=== PATIENT | female | born 1990 | race Caucasian/White ===

== ENCOUNTER 2016-09-11 23:53 | Emergency (ER) | payer OTHER ==
[~2016-09-11] VITALS: Ht 165.1 cm; Wt 92.1 kg
[~2016-09-11 23:53] MED LIST: ATIVAN0.5 M1 PO; BUSPIRONE HCL10 M1 PO; CIPRO 250MG250 MG PO; CIPRO 500MG (E500 MG PO; FLUOXETINE HCL60 MG PO; FLUOXETINE HYDR40 MG PO; IBUPROFEN800 M1 PO; JUNEL FE 1/20 21 TAB PO; MOTRIN800 MG PO; NICOTINE PATCH1 EAC2 TOP; PERCOCET 325 MG1 TA2 PO; PERCOCET 5-3251 EACH PO; PHENAZOPYRIDIN200 MG PO; PROZAC40 MG PO; TORADOL10 MG PO; VICODIN5-300 PO; ZOFRAN 8MG8 MG PO
--- NOTE | 2016-09-12 00:08 | ED GENERAL ADULT ---
History of Present Illness General Chief Complaint: Dizziness Stated Complaint: BIBA PT C/O DIZZINESS Source: patient, old records, EMS Exam Limitations: no limitations Vital Signs & Intake/Output Vital Signs & Intake/Output Vital Signs Date Time Temp Pulse Resp B/P Pulse O2 O2 Flow FiO2 Ox Delivery Rate 09/12 0308 100 Room Air 09/12 0306 97.1 70 18 127/68 100 Room Air 09/12 0109 64 112/56 09/11 2356 97.5 69 18 131/69 100 Room Air ED Intake and Output 09/12 0000 09/11 1200 Intake Total Output Total Balance Patient 203 lb Weight Allergies Coded Allergies: Sulfa (Sulfonamide Antibiotics) (Severe, THROAT CLOSURE 09/12/16) latex (Mild, HEADACHE, UTI 09/12/16) Reconcile Medications Benztropine Mesylate 0.5 MG TABLET 1 TAB PO BID (Reported) Pnv#26/Iron Poly/FA/Dha (Vitafol-One Capsule) 29 MG IRON-1 MG-200 MG CAPSULE 1 CAP PO DAILY (Reported) Triage Note: TRIAGE: BIBA TO ER FROM HOME 11 WEEKS POST PARDUM REPORTING ENAR-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 PATIENT REPORTS "WAS STANDIG AT SINK AND SUDDENLY FELT LIKE GOING TO PASS OUT." REPORTS RECENTLY ON HOLTER MONITOR, "BUT HAD TO BE TAKEN OFF IT D/T ALLERGIC TO LEADS." PATIENT DENEIS ANY CP, "FEELS LIKE PALPITATIONS." REPORTS +SOB, NO ACUTE DISTRESS, LUNGS CTA. ALSO REPORTING BURNING W/ URINATION, "DON'T KNOW IF UTI OR BEGINNING OF KIDNEY STONE (HX STONES)." Triage Nurses Notes Reviewed? yes : No Patient currently breastfeeds: Yes HPI: Patient states that she called 911 because she felt lightheaded and almost to the point that she was given a pass out. The symptoms worsen whenever she got up from a sitting position. Patient denies any chest pain or palpitations. Patient states that she was recently started on a new psychiatric medication that was making her feel very anxious so yesterday she started Cogentin to help with the side effects of that medication. Patient is unsure if the symptoms are a side effect to the Cogentin. Patient denies any nausea or vomiting. Patient denies any dysuria. Patient denies any room spinning dizziness. Past History Travel History Traveled to [place] past 21 day No Medical History Any Pertinent Medical History? 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 No Review of Systems Review of Systems Constitutional: Reports: no symptoms. EENTM: Reports: no symptoms. Respiratory: Reports: no symptoms. Cardiovascular: Reports: no symptoms. GI: Reports: no symptoms. Genitourinary: Reports: no symptoms. Musculoskeletal: Reports: no symptoms. Skin: Reports: no symptoms. Neurological/Psychological: Reports: see HPI. Hematologic/Endocrine: Reports: no symptoms. Immunologic/Allergic: Reports: no symptoms. All Other Systems: Reviewed and Negative Physical Exam Physical Exam General Appearance: well developed/nourished, alert, awake, anxious, mild distress Head: atraumatic Eyes: Bilateral: PERRL, EOMI. Ears, Nose, Throat: normal pharynx, normal ENT inspection, hearing grossly normal Neck: normal inspection, supple, full range of motion Respiratory: normal breath sounds, chest non-tender, no respiratory distress, lungs clear Cardiovascular: regular rate/rhythm, normal peripheral pulses Gastrointestinal: normal bowel sounds, soft, non-tender, no organomegaly Extremities: normal inspection, normal capillary refill, normal range of motion, no edema Neurologic/Psych: no motor/sensory deficits, awake, alert, oriented x 3, normal mood/affect Skin: intact, normal color, warm/dry Lymphatic: no anterior cervical matthew Core Measures ACS in differential dx? No CVA/TIA Diagnosis: No Severe Sepsis Present: No Septic Shock Present: No Progress Differential Diagnoses I considered the following diagnoses in my evaluation of the patient: [ Electrolyte abnormality, near syncope, orthostatic hypotension, medication reaction] Plan of Care: Orders Procedure Date/time Status Regular Diet 09/12 B Active Discharge Patient 09/[address] in observation 09/12 203 Active Patient Data 09/12 203 Active Code Status 09/12 020 Active Add-on Test (ER Only) 09/12 0150 Active CULTURE,URINE 09/12 121 Active MISTAKE 09/12 000 Active URINALYSIS 09/12 5 Complete COMPREHENSIVE METABOLIC PANEL 09/12 5 Complete CBC WITHOUT DIFFERENTIAL 09/12 5 Complete EKG 09/12 0005 Active Laboratory Tests 09/12/16 012: Urine Color YEL, Urine Clarity CLDY H, Urine pH 6.5, Ur Specific Walton 1.020, Urine Protein TRACE H, Urine Ketones NEG, Urine Nitrite POS H, Urine Bilirubin NEG, Urine Urobilinogen 0.2, Ur Leukocyte Esterase SMALL H, Ur Microscopic SEDIMENT EXAMINED, Urine RBC 5-10 H, Urine WBC 15-25 H, Ur Epithelial Cells FEW, Urine Mucus FEW, Urine Hemoglobin MOD H, Urine Glucose NEG 09/12/16 0033: Anion Gap 11, Estimated GFR > 60, BUN/Creatinine Ratio 25.7 H, Glucose 111 H, Calcium 9.3, Total Bilirubin 1.3, AST 51 H, ALT 102 H, Alkaline Phosphatase 72 , Total Protein 6.9, Albumin 4.2, Globulin 2.7, Albumin/Globulin Ratio 1.6, CBC w Diff NO MAN DIFF REQ, RBC 4.59, MCV 82.6, MCH 27.4, RDW 14.4, MPV 11.0 H, Gran % 56.6, Lymphocytes % 33.3, Monocytes % 7.0, Eosinophils % 2.1, Basophils % 1.0, Absolute Granulocytes 4.5, Absolute Lymphocytes 2.6, Absolute Monocytes 0.6 , Absolute Eosinophils 0.2, Absolute Basophils 0.1, PUBS MCHC 33.2 Microbiology 09/12 121 URINE ROUT: Urine Culture - RECD Initial ED EKG: NSR, no ST T wave changes Prior EKG: unchanged Comments: There are no orthostatic changes. Patient was able to get up to go to the bathroom however she still felt lightheaded when she was up and walking. Patient states that she is feeling better after some IV fluids however she still feels uncomfortable going home. Departure Departure Disposition: HOME OR SELF CARE Condition: Stable Clinical Impression Primary Impression: Lightheadedness Referrals: HUGH MCDERMOTT MD (PCP/Family) Additional Instructions: Follow-up with your primary care physician. Return if symptoms worsen or for any concerns. Departure Forms: Customer Survey General Discharge Information Critical Care Note Critical Care Note Critical Care Time: non-applicable ED Attending Observation Initial Observation Note: I have seen and personally examined MEI FARRAR on 09/12/16 at 0202. I agree with the current emergency department documentation. The disposition (admission or discharge) is uncertain at this time, she needs a period of observation for the following reason(s): [At this point patient will be placed in ED observation for gentle hydration overnight and continued observation for this near syncopal feelings. If her symptoms resolve the patient will be stable for discharge however if her symptoms worsen she may require admission.] The ED Nurse caring for this patient has been personally informed as to what the patient is being observed for. Observation Re-Evaluation: I have reevaluated MEI FARRAR on 09/12/16 at 0242. The physical findings that support the continued need to observe this patient include [after more hydration patient now feels better and she denies any current lightheadedness. Patient now wants to go home. Patient will contact her primary care physician in the morning.]. Observation Discharge: I have reevaluated MEI FARRAR on 09/12/16 at 0243. The patient is: (): Stable for discharge (): To be admitted to Nursing Floor (): To be placed in Observation on Nursing Floor (): For transfer to other facility The patient was being observed for As a result of that observation, I have determined .
[2016-09-12 00:43] LABS: ABSOLUTE BASOPHIL COUNT 0.1 /CUMM (0.0-0.2); ABSOLUTE EOSINOPHIL COUNT 0.2 /CUMM (0.0-0.7); ABSOLUTE GRANULOCYTE CT 4.5 /CUMM (1.4-6.5); ABSOLUTE LYMPH COUNT 2.6 /CUMM (1.2-3.4); ABSOLUTE MONOCYTE COUNT 0.6 /CUMM (0.10-0.60); EOSINOPHIL % 2.1 % (0-5); GRANULOCYTE % 56.6 % (42.2-75.2); HEMATOCRIT 37.9 % (37-47); MEAN CORPUSCULAR HGB 27.4 PG (27.0-31.0); MEAN CORPUSCULAR HGB CONC 33.2 G/DL (33.0-37.0); MEAN CORPUSCULAR VOLUME 82.6 FL (81.0-99.0); RBC DISTRIBUTION WIDTH 14.4 % (11.5-14.5); RED BLOOD CELL CT 4.59 /CUMM (4.20-5.40); WHITE BLOOD CELL COUNT 7.9 /CUMM (4.8-10.8)
[2016-09-12 00:54] LABS: PLATELET COUNT 207 /CUMM (130-400)
[2016-09-12 03:06] VITALS: BP 127/68
[2016-09-12] MEDS ORDERED: VITAFOL-ONE CA1 EACH PO (03:08)
[2016-09-12] MEDS ORDERED: BENZTROPINE ME0.5 M1 PO (03:08)
== END 2016-09-12 03:09 ==
LOC: ERH 23:53
PROVIDERS: Emergency Medicine
DX: R42 Dizziness and giddiness (principal)
CPT/HCPCS: 81001; 87086; 93005; 93010

== ENCOUNTER 2016-10-02 08:14 | Emergency (ER) | payer OTHER ==
[~2016-10-02] VITALS: Ht 165.1 cm; Wt 90.3 kg
[~2016-10-02 08:14] MED LIST changes: +BENZTROPINE ME0.5 M1 PO; +VITAFOL-ONE CA1 EACH PO
[2016-10-02 08:18] VITALS: BP 117/79
[2016-10-02] MEDS ORDERED: PREDNISONE20 M1 PO (08:58)
--- NOTE | 2016-10-02 09:01 | ED GENERAL ADULT ---
History of Present Illness General Chief Complaint: Sore Throat, Dental Pain Stated Complaint: SORE THROAT Source: patient Exam Limitations: no limitations Vital Signs & Intake/Output Vital Signs & Intake/Output Vital Signs Date Time Temp Pulse Resp B/P Pulse O2 O2 Flow FiO2 Ox Delivery Rate 10/02 0818 97.4 109 16 117/79 99 Room Air Allergies Coded Allergies: Sulfa (Sulfonamide Antibiotics) (Severe, THROAT CLOSURE 09/12/16) latex (Mild, HEADACHE, UTI 09/12/16) Reconcile Medications Amoxicillin 500 MG TABLET 1 TAB PO BID STREP THROAT Benztropine Mesylate 0.5 MG TABLET 1 TAB PO BID (Reported) Pnv#26/Iron Poly/FA/Dha (Vitafol-One Capsule) 29 MG IRON-1 MG-200 MG CAPSULE 1 CAP PO DAILY (Reported) Prednisone 20 MG TABLET 1 TAB PO BID SORE THROAT DISCONTINUE WHEN ASYMPTOMATIC Triage Note: PT STATES SHE THINKS SHE HAS STEP AND SHE DOESN'T HAVE INSURANCE SO SHE HAS NO PCP AND SHE CAME HERE. Triage Nurses Notes Reviewed? yes : No Patient currently breastfeeds: No HPI: 25-year-old woman multiple medical problems seen for evaluation of throat pain. She reports a mild sore throat for the past 2 days with subjective fever and associated chills last evening. She also comments on frequent loose stools over the past 4 days. She is concerned that she might have "strep throat" and is requesting antibiotics. She denies any cough or sick contacts. Additionally she denies any headache, chest pain, palpitations, shortness of breath, nausea, vomiting. (LAUREN BELLO,CARLOS EDUARDO) Past History Travel History Traveled to [place] past 21 day No Medical History Any Pertinent Medical History? 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 No (CARLOS EDUARDO AGUILAR MD) Review of Systems Review of Systems Constitutional: Reports: see HPI. (CARLOS EDUARDO AGUILAR MD) Physical Exam Physical Exam General Appearance: well developed/nourished, no apparent distress, alert, awake Comments: General -well-developed, well-nourished obese woman in no acute distress HEENT - NCAT, PERRL, EOMI, anicteric sclera, EAC clear bilaterally, pharyngeal exudates without erythema or peritonsillar abscess, no cervical lymphadenopathy Cardio - S1, S2 w/o murmurs/gallops/rubs Resp - CTA bilaterally w/o wheezing/rhochi/crackles Neuro - Awake and alert, CN II - XII grossly intact Core Measures ACS in differential dx? No CVA/TIA Diagnosis: No Severe Sepsis Present: No Septic Shock Present: No (CARLOS EDUARDO AGUILAR MD) Progress Differential Diagnoses I considered the following diagnoses in my evaluation of the patient: Viral pharyngitis, strep pharyngitis Plan of Care: Orders Procedure Date/time Status THROAT CULTURE W/QUICK STREP 10/02 820 Complete Initial ED EKG: none Comments: Rapid strep testing returned positive. Given patient's physical examination demonstrating a pharyngeal exudate and her positive rapid strep test result it is likely patient is suffering from a bacterial pharyngitis. She was given a dose of steroids to help with her complaints of throat pain and a steroid taper to be discontinued when she is asymptomatic. She was given a 10 day total course of amoxicillin with instruction to follow-up with her PCP Dr. Mcdermott of [facility] after discharge. (CARLOS EDUARDO AGUILAR MD) Departure Departure Disposition: HOME OR SELF CARE Condition: Stable Clinical Impression Primary Impression: Strep pharyngitis Referrals: HUGH MCDERMOTT MD (PCP/Family) Additional Instructions: Take prednisone as directed. Follow up with Dr. Mcdermott of [facility] to establish care after discharge. Departure Forms: Customer Survey General Discharge Information Prescriptions: Current Visit Scripts Prednisone 1 TAB PO BID #10 TAB DISCONTINUE WHEN ASYMPTOMATIC Amoxicillin 1 TAB PO BID #20 TAB (CARLOS EDUARDO AGUILAR MD) Resident Co-Sign Statement Statement: ED Attending supervision documentation- x I saw and evaluated the patient. I have also reviewed all the pertinent lab results and diagnostic results. I agree with the findings and the plan of care as documented in the Resident's documentation. [] I have reviewed the ED Record and agree with the Resident's documentation. [] Additions or exceptions (if any) to the Resident's note and plan are summarized below: [] (SHERRELL BELLO,THEODORA) Critical Care Note Critical Care Note Critical Care Time: non-applicable (LAUREN BELLO,CARLOS EDUARDO)
[2016-10-02] MEDS ORDERED: AMOXICILLIN500 M3 PO (09:04)
--- NOTE | 2016-10-04 12:35 | OP PSYCH INTRA-AGENCY ASSESS ---
Psych Intra-Agency Transfer Date of Group or Service 10/04/16 Time of Group or Service: 1124 Part 1 Transferring Program: IOP Accepting Program: OPS Presenting Problem: Patient is a 25 year old single female, mother of 2, lives with her boyfriend (father of children) in apartment in [place] and recently gave to girl on 06/29/2016 via . She reports having "severe OCD and anxiety." She is being referred after successful completion of the intensive outpatient program. After the of her daughter she self admitted herself to the hospital for suidicial and homicidal thoughts - thoughts she may accidentally hurt her daughter and thoughts life would be better if she was not here. Overall, patient stated she is doing better at this time, but described her current mood as depressed. Rated her current depression and current anxiety both a 8/10, with 10 being the worst. Reports getting 5/6 hours of sleep each night and not taking naps during the day. For pleasurable activities patient reports she enjoys watching [employer], washing dishes, and feeding her daughter. Denies feeling isolated or socially withdrawn at this time. Denies SI/HI at this time. PAtient reports working part-time, less than 20 hours a week at [email or web address] on the weekends. States she is getting along with others in her life at this time. Reported her greatest stressor is her mother and the most effective coping skill she has found is to ignore her mother. Preferred Learning Style i.e. visual, auditory, experiential, etc: auditory Orientation Person, Place, Situation Affect WNL Speech WNL Neuro-vegetative Appetite Increased, Concentration Poor, Loss of Interest, Sexual Interest Decreased Thought Process WNL Thought Content WNL Memory WNL Insight Fair Judgment WNL Appearance Dress/Hygiene: Casually dressed, appears stated age, well-groomed Risk Assessment RISK ASSESSMENT Suicidal Ideation/Attempts (past or current): Past: SI thoughts on two occassions, once after the of her son and the other after the of her daughter. No plan/intent. Thoughts that it would be better if she was not here. Current: Denies Family History: Denies Homicidal Ideation/Attempts (past or current): Past: Afraid of wanting to harm daughter Current: Denies Protective factors for SI/HI: 'God knows the truth and what her heart really wants." Seeking help. Degree of Intent None Risk Factors High Anxiety/Distress, SA/MH Hospitalization(s) Lethality Rating 1 (mild) Medication Review Allergies Coded Allergies: Sulfa (Sulfonamide Antibiotics) (Severe, THROAT CLOSURE 09/12/16) latex (Mild, HEADACHE, UTI 09/12/16) Medication Details MEDICATIONS PSYCHIATRIC MEDICATIONS olanzapine 7.5mg at bedtime cogentin 0.5mg "if needed" 2x/day for restlessness (do not take with ativan) ativan 0.5mg "if needed" 1x daily for anxiety attack Part 2 Assessed Needs and Initial Treatment Plan/Goals: Patient will benefit from continued treatment in [facility]. She will attend medication management with Yang Reyes APRN monthly/as needed. Declined group or individual therapy at this time. Patient's goal is to maintain stable mood and good functioning while learning healthier ways to cope with stressors. See treatment plan for measurable goals and objectives. Further Evaluations Recommended: X None Indicated Neurological Vocational Psychiatric X Medical (H&P) Nutritional Psychological Educational SA Assessment Other * To be completed by Admitting MD or Assigned INTERNET SALES MANAGER Only PRE-CERTIFICATION FOR ADMISSION- [facility] Care Provider: Name of Reviewer/Senior Military Analyst: Contact Telephone #: # Inpatient days approved: Authorization #: Date of Next Review: DSM5/PS Stressors/Medical Prob Diagnosis' (DSM 5, Stressors, Medical): F33.1 Major Depressive Disorder, recurrent, moderate F42 OCD, stressors: , relationship discord, Medical: Bradycardia,Polycystic Ovarian Syndrome Comments: WHODAS:29 PCL-C: 64
== END 2016-10-02 09:12 ==
LOC: ERH 08:14
DX: J02.0 Streptococcal pharyngitis (principal); Z72.0 Tobacco use

== ENCOUNTER 2017-02-05 18:45 | Emergency (ER) | payer OTHER ==
[~2017-02-05] VITALS: Ht 165.1 cm; Wt 96.2 kg
[~2017-02-05 18:45] MED LIST changes: +AMOXICILLIN500 M3 PO; +PREDNISONE20 M1 PO
[2017-02-05] MEDS ORDERED: ARIPIPRAZOLE5 M1 PO (20:51)
[2017-02-05] MEDS ORDERED: QUETIAPINE FUM100 M1 PO (20:51)
[2017-02-05] MEDS ORDERED: FLUOXETINE HCL20 M2 PO (20:51)
[2017-02-05] MEDS ORDERED: BENZTROPINE MESY1 M1 PO (20:52)
[2017-02-05] MEDS ORDERED: BENZTROPINE ME0.5 M1 PO (20:52)
[2017-02-05 21:14] LABS: ABSOLUTE BASOPHIL COUNT 0 /CUMM (0.0-0.2); ABSOLUTE EOSINOPHIL COUNT 0.2 /CUMM (0.0-0.7); ABSOLUTE GRANULOCYTE CT 4.7 /CUMM (1.4-6.5); ABSOLUTE LYMPH COUNT 2.3 /CUMM (1.2-3.4); ABSOLUTE MONOCYTE COUNT 0.5 /CUMM (0.10-0.60); BASOPHIL % 0.6 % (0.0-2.0); EOSINOPHIL % 2.5 % (0-5); HEMATOCRIT 38.5 % (37-47); MEAN CORPUSCULAR HGB 26.9 PG (27.0-31.0); MEAN CORPUSCULAR HGB CONC 32.5 G/DL (33.0-37.0); MEAN CORPUSCULAR VOLUME 82.9 FL (81.0-99.0); MEAN PLATELET VOLUME 10.7 FL (7.4-10.4); PLATELET COUNT 213 /CUMM (130-400); RBC DISTRIBUTION WIDTH 13.9 % (11.5-14.5); RED BLOOD CELL CT 4.65 /CUMM (4.20-5.40); WHITE BLOOD CELL COUNT 7.8 /CUMM (4.8-10.8)
--- NOTE | 2017-02-05 21:45 | ED CARDIAC/CP/PALPITATIONS ---
History of Present Illness General Chief Complaint: Chest Pain Stated Complaint: CHEST PAIN, PALPITATIONS Source: patient Exam Limitations: no limitations Vital Signs & Intake/Output Vital Signs & Intake/Output Vital Signs Date Time Temp Pulse Resp B/P B/P Pulse O2 O2 Flow FiO2 Mean Ox Delivery Rate 02/05 2234 98.0 74 18 117/59 97 Room Air 02/057 98.0 88 18 120/77 97 Room Air Room Air 02/05 1852 98.1 76 18 126/79 98 Room Air Allergies Coded Allergies: Sulfa (Sulfonamide Antibiotics) (Severe, ANAPHYLAXIS 02/05/17) latex (Mild, HEADACHE, UTI 09/12/16) Reconcile Medications Aripiprazole 5 MG TABLET 1 TAB PO DAILY MENTAL HEALTH (Reported) Benztropine Mesylate 1 MG TABLET 1 TAB PO QAM MENTAL HEALTH (Reported) Benztropine Mesylate 0.5 MG TABLET 1 TAB PO QPM MENTAL HEALTH (Reported) Fluoxetine HCl 20 MG CAPSULE 60 MG PO DAILY MENTAL HEALTH (Reported) Quetiapine Fumarate 100 MG TABLET 1 TAB PO QPM MENTAL HEALTH (Reported) Triage Note: 26 YO FEMALE TO ER C/O CHEST PAIN AND SHORTNESS OF BREATH SINCE YESTERDAY. STATES SHE FEELS LIKE SHE IS UNABLE TO TAKE A BREATH. EKG IN PROGRESS. ADAN BAH PAIN, NVD Triage Nurses Notes Reviewed? yes Onset: Gradual Duration: week(s):, intermittent Timing: recent history : No Patient currently breastfeeds: No HPI: 26-year-old female comes into emergency room for further evaluation of intermittent chest pain dizziness and shortness of breath has been going on for last couple months. Symptoms began after she was started on psychiatric medications . Patient reports that she had gone psychosis. Patient was started on SEROQUEL. Symptoms are intermittent. It comes and goes. Denies any vomiting diaphoresis. Nothing seems to make the symptoms better or worse. Denies any other past medical history. Past History Travel History Traveled to [place] past 21 day No Medical History Any Pertinent Medical History? 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 No Review of Systems Review of Systems Constitutional: Reports: no symptoms. EENTM: Reports: no symptoms. Respiratory: Reports: see HPI. Cardiovascular: Reports: see HPI. GI: Reports: no symptoms. Genitourinary: Reports: no symptoms. Musculoskeletal: Reports: no symptoms. Skin: Reports: no symptoms. Neurological/Psychological: Reports: no symptoms. Hematologic/Endocrine: Reports: no symptoms. Immunologic/Allergic: Reports: no symptoms. All Other Systems: Reviewed and Negative Physical Exam Physical Exam General Appearance: well developed/nourished, no apparent distress, alert Head: atraumatic, normal appearance Eyes: Bilateral: normal appearance, EOMI. Ears, Nose, Throat: normal ENT inspection, hearing grossly normal Neck: normal inspection Respiratory: normal breath sounds, no respiratory distress Cardiovascular: regular rate/rhythm Back: normal inspection Extremities: normal range of motion, no edema Neurologic/Psych: awake, alert, oriented x 3, normal gait, normal mood/affect Skin: intact, normal color Core Measures ACS in differential dx? Yes Severe Sepsis Present: No Septic Shock Present: No Progress Differential Diagnosis: AMI, aortic dissection, cholecystitis, costochondritis, hyperkalemia, hyperthyroid, intracranial hemorrhage, musculoskeletal pain, myocarditis, pancreatitis, pericarditis, pneumonia, pneumothorax, pulmonary embolism, PUD/GERD, rib fracture, sepsis, unstable angina Plan of Care: Orders Procedure Date/time Status Add-on Test (ER Only) 02/05 2145 Active D-DIMER 02/06 2104 Complete URINE 02/06 2044 Complete TROPONIN LEVEL 02/06 2044 Complete COMPREHENSIVE METABOLIC PANEL 02/06 2044 Complete CBC WITHOUT DIFFERENTIAL 02/06 2044 Complete EKG 02/05 1847 Active Laboratory Tests 02/05/172128: Urine Test NEGATIVE 02/05/172103: Anion Gap 12, Estimated GFR > 60, BUN/Creatinine Ratio 20.0, Glucose 88, Calcium 9.5, Total Bilirubin 0.8, AST 33, ALT 69 H, Alkaline Phosphatase 73, Troponin I < 0.01, Total Protein 7.1, Albumin 4.5, Globulin 2.6, Albumin/Globulin Ratio 1.7 , D-Dimer High Sensitivty < 200, CBC w Diff NO MAN DIFF REQ, RBC 4.65, MCV 82.9, MCH 26.9 L, RDW 13.9, MPV 10.7 H, Gran % 60.0, Lymphocytes % 30.0, Monocytes % 6.9, Eosinophils % 2.5, Basophils % 0.6, Absolute Granulocytes 4.7, Absolute Lymphocytes 2.3, Absolute Monocytes 0.5, Absolute Eosinophils 0.2, Absolute Basophils 0, PUBS MCHC 32.5 L Diagnostic Imaging: Viewed by Me: Radiology Read. Discussed w/RAD: Radiology Read. Radiology Impression: SERVICE DATE: 02/05/17 EXAM TYPE: RAD - XRY-CHEST XRAY, PA AND LATERAL EXAMINATION: XR CHEST CLINICAL INFORMATION: Chest pain. COMPARISON: Chest x-ray 07/08/2016. TECHNIQUE: Three views of the chest were obtained. FINDINGS: The lungs are well-expanded and clear without focal airspace consolidation. No pleural effusions or pneumothoraces are identified. Cardiomediastinal contours are within normal limits. Soft tissues are unremarkable. No acute osseous abnormality is identified. IMPRESSION: No acute pulmonary process. Initial ED EKG: normal intervals, normal p-waves, normal sinus rhythm, rate (89) , nonspecific ST T wave chg Departure Departure Disposition: HOME OR SELF CARE Condition: Stable Clinical Impression Primary Impression: Atypical chest pain Referrals: HUGH MCDERMOTT MD (PCP/Family) Additional Instructions: Follow-up with your primary care doctor. Return if any concerns worsening symptoms. You may need further evaluation with cloth dyer. Please go over all results of today's visit with your primary care doctor. Contact your primary care doctor to let them know you were here in the emergency room. There may be nonspecific findings which may not be related to your visit today here in the emergency room but may require further evaluation and chronic monitoring by your primary care doctor. If you had a laceration today the chance of foreign body always remains. You should follow-up with your primary care doctor for recheck in 3-5 days for a wound check. If you had an x-ray done there is a chance that a fracture could have been missed on initial read and you should follow-up with your primary care doctor for repeat x-rays if symptoms persist. If your blood pressure was elevated here in the emergency room please have rechecked by her primary care doctor within the next 48 hours by your primary care doctor. If you were prescribed a narcotic here in the emergency room or any type of controlled substances you're not allowed to drive while taking this medication or operate any type of heavy machinery. Narcotics can make you feel lightheaded dizziness nausea and can cause constipation. You may need to hot die picker a stool softener. Thank you for choosing [facility] emergency room. Please return to the emergency room immediately if you have any other concerns worsening of symptoms. Departure Forms: Customer Survey General Discharge Information Comments 02/05/2017 10:48:21 PM Patient clinically looks well. Patient is in no apparent distress. Patient is nontoxic-appearing. Symptoms of a going on for months. Patient will follow up with primary care doctor. Return if any other concerns worsening symptoms. Case discussed with Dr. chapman. Critical Care Note Critical Care Note Critical Care Time: non-applicable
--- NOTE | 2017-02-05 22:27 | RADIOLOGY REPORT ---
EXAMINATION: XR CHEST CLINICAL INFORMATION: Chest pain. COMPARISON: Chest x-ray 07/08/2016. TECHNIQUE: Three views of the chest were obtained. FINDINGS: The lungs are well-expanded and clear without focal airspace consolidation. No pleural effusions or pneumothoraces are identified. Cardiomediastinal contours are within normal limits. Soft tissues are unremarkable. No acute osseous abnormality is identified. IMPRESSION: No acute pulmonary process.
[2017-02-05 22:34] VITALS: BP 117/59
== END 2017-02-05 22:45 ==
LOC: ERH 18:45
PROVIDERS: Physician Assistant Medical
DX: R07.89 Other chest pain (principal)
CPT/HCPCS: 81025; 93005; 93010

== ENCOUNTER 2017-03-09 16:28 | Emergency (ER) | payer OTHER ==
[~2017-03-09] VITALS: Ht 165.1 cm; Wt 94.8 kg
[~2017-03-09 16:28] MED LIST changes: +ARIPIPRAZOLE5 M1 PO; +BENZTROPINE MESY1 M1 PO; +FLUOXETINE HCL20 M2 PO; +QUETIAPINE FUM100 M1 PO
[2017-03-09 16:35] VITALS: BP 120/81
--- NOTE | 2017-03-09 16:53 | ED GI/GU/ABDOMINAL COMPLAINT ---
History of Present Illness General Chief Complaint: Female Urogenital Problems Stated Complaint: UTI , HX OF KIDNEY STONE Source: patient Exam Limitations: no limitations Vital Signs & Intake/Output Vital Signs & Intake/Output Vital Signs Date Time Temp Pulse Resp B/P B/P Pulse O2 O2 Flow FiO2 Mean Ox Delivery Rate 03/09 1651 Room Air 03/09 1635 97.1 76 18 120/81 100 Room Air Allergies Coded Allergies: Sulfa (Sulfonamide Antibiotics) (Severe, ANAPHYLAXIS 02/05/17) latex (Mild, HEADACHE, UTI 09/12/16) Reconcile Medications Aripiprazole 5 MG TABLET 1 TAB PO QPM MENTAL HEALTH (Reported) Benztropine Mesylate 1 MG TABLET 1 TAB PO QAM MENTAL HEALTH (Reported) Benztropine Mesylate 0.5 MG TABLET 1 TAB PO QPM MENTAL HEALTH (Reported) Ciprofloxacin HCl (Cipro) 500 MG TABLET 1 TAB PO BID uti Fluoxetine HCl 20 MG CAPSULE 60 MG PO DAILY MENTAL HEALTH (Reported) Quetiapine Fumarate 100 MG TABLET 2 TAB PO QPM MENTAL HEALTH (Reported) Triage Note: PT TO ED FOR PELVIC AND FLANK PAIN X 2 DAYS, RECENT TX FOR UTI, REPORTING SHE PASSED A KIDNEY STONE 5 DAYS AGO "AND ITS BEEN SORE SINCE" DENIES FEVER, NAUSEA, VOMITING. Triage Nurses Notes Reviewed? yes ? n Is pt currently ? No Onset: Abrupt Duration: day(s):, intermittent Timing: recent history Quality/Severity: moderate, sharpness Radiation: back Activities at Onset: none No Modifying Factors: none HPI: 26 showed female comes into emergency room for further evaluation of burning with urination lower pelvic pressure and some left flank pain. Patient was seen at urgent care center couple weeks ago and diagnosed with UTI and started on Macrobid. She was then average for Hospital last week for some chest pain and also had another urine which was told that she had a infection and was switched to Keflex. She has no complaints of chest pain today but she reports some persistent burning with urination and lower abdominal pain. Finish course of Keflex. Some associated left flank pain. She reports the other day she feels like she passed a kidney stone. She reports that her white [place] was in toilet paper . (BAILEY CHAVEZ,EVER) Past History Travel History Traveled to [place] past 21 day No Medical History Any Pertinent Medical History? 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 No (EVER GASCA) Review of Systems Review of Systems Constitutional: Reports: no symptoms. EENTM: Reports: no symptoms. Respiratory: Reports: no symptoms. Cardiovascular: Reports: no symptoms. GI: Reports: no symptoms. Genitourinary: Reports: see HPI. Musculoskeletal: Reports: no symptoms. Skin: Reports: no symptoms. Neurological/Psychological: Reports: no symptoms. Hematologic/Endocrine: Reports: no symptoms. Immunologic/Allergic: Reports: no symptoms. All Other Systems: Reviewed and Negative (EVER GASCA) Physical Exam Physical Exam General Appearance: well developed/nourished, no apparent distress, alert Head: atraumatic, normal appearance Eyes: Bilateral: normal appearance, EOMI. Ears, Nose, Throat, Mouth: hearing grossly normal, moist mucous membrane Neck: normal inspection Respiratory: normal breath sounds, no respiratory distress Cardiovascular: regular rate/rhythm Gastrointestinal: soft Back: normal inspection Extremities: normal range of motion Neurologic/Psych: awake, alert, oriented x 3, normal gait Skin: intact, normal color Core Measures ACS in differential dx? No Severe Sepsis Present: No Septic Shock Present: No (EVER GASCA) Progress Differential Diagnosis: appendicitis, biliary colic, bowel obstruction, colon cancer, cholecystitis, diverticulitis, ectopic , intrauterine , kidney stone, ovarian cyst, ovarian torsion, PID/cervicitis, UTI/pyelo Plan of Care: Orders Procedure Date/time Status Add-on Test (ER Only) 03/09 1718 Active CULTURE,URINE 03/09 1648 Active URINE 03/09 1640 Complete URINALYSIS 03/09 1636 Complete Laboratory Tests 03/09/171647: Urine Test NEGATIVE 03/09/171647: Urine Color YEL, Urine Clarity HAZY H, Urine pH 7.0, Ur Specific [place] 1.015, Urine Protein TRACE H, Urine Ketones NEG, Urine Nitrite NEG, Urine Bilirubin NEG, Urine Urobilinogen 0.2, Ur Leukocyte Esterase MOD H, Ur Microscopic SEDIMENT EXAMINED, Urine RBC 3-5, Urine WBC 25-50 H, Ur Epithelial Cells RARE, Urine Bacteria MANY H, Urine Hemoglobin MOD H, Urine Glucose NEG Microbiology 03/09 1648 URINE ROUT: Urine Culture - RECD Initial ED EKG: none Comments: 03/09/2017 5:29:26 PM Symptoms are consistent with uncomplicated UTI at this point. Patient declined any blood work or diagnostic imaging. T patient will be treated symptomatically. Follow-up with primary care. Culture sent. Return if any other concerns. (EVER GASCA) Departure Departure Disposition: HOME OR SELF CARE Condition: Stable Clinical Impression Primary Impression: UTI (urinary tract infection) Referrals: JAYME BELLO,GABRIELLA MCDERMOTT MD,HUGH (PCP/Family) Additional Instructions: Take ciprofloxacin as prescribed. Rest. Drink plenty of fluids. Follow-up with primary care doctor. Return if any concerns worsening symptoms. Departure Forms: Customer Survey General Discharge Information Prescriptions: Current Visit Scripts Ciprofloxacin HCl (Cipro) 1 TAB PO BID #14 TAB (EVER GASCA) PA/SLACK LINE YARDER Co-Sign Statement Statement: ED Attending supervision documentation- [] I saw and evaluated the patient. I have also reviewed all the pertinent lab results and diagnostic results. I agree with the findings and the plan of care as documented in the PA's/SLACK LINE YARDER's documentation. [X] I have reviewed the ED Record and agree with the PA's/SLACK LINE YARDER's documentation. [] Additions or exceptions (if any) to the PAs/SLACK LINE YARDER's note and plan are summarized below: [] (MAREN BELLO,RAMSEY)
[2017-03-09] MEDS ORDERED: CIPRO500 M1 PO (17:22)
== END 2017-03-09 17:28 ==
LOC: ERH 16:28
DX: N39.0 Urinary tract infection, site not specified (principal)
CPT/HCPCS: 81001; 81025; 87086

== ENCOUNTER 2017-03-10 09:54 | Emergency (ER) | payer OTHER ==
[~2017-03-10] VITALS: Ht 165.1 cm; Wt 94.8 kg
[~2017-03-10 09:54] MED LIST changes: +CIPRO500 M1 PO
[2017-03-10 11:25] LABS: ABSOLUTE BASOPHIL COUNT 0.1 /CUMM (0.0-0.2); ABSOLUTE EOSINOPHIL COUNT 0.1 /CUMM (0.0-0.7); ABSOLUTE GRANULOCYTE CT 2.8 /CUMM (1.4-6.5); ABSOLUTE LYMPH COUNT 1.5 /CUMM (1.2-3.4); ABSOLUTE MONOCYTE COUNT 0.4 /CUMM (0.10-0.60); BASOPHIL % 1.1 % (0.0-2.0); EOSINOPHIL % 2.6 % (0-5); GRANULOCYTE % 57.7 % (42.2-75.2); HEMATOCRIT 37.9 % (37-47); MEAN CORPUSCULAR HGB 27.2 PG (27.0-31.0); MEAN CORPUSCULAR HGB CONC 32.9 G/DL (33.0-37.0); MEAN CORPUSCULAR VOLUME 82.9 FL (81.0-99.0); MEAN PLATELET VOLUME 10.5 FL (7.4-10.4); PLATELET COUNT 204 /CUMM (130-400); RBC DISTRIBUTION WIDTH 14.2 % (11.5-14.5); RED BLOOD CELL CT 4.58 /CUMM (4.20-5.40); WHITE BLOOD CELL COUNT 4.9 /CUMM (4.8-10.8)
--- NOTE | 2017-03-10 11:28 | ED GI/GU/ABDOMINAL COMPLAINT ---
History of Present Illness General Chief Complaint: Abdominal Pain/Flank Pain Stated Complaint: SEEN HERE LAST NIGHT KIDNEY STONES Source: patient, old records Exam Limitations: no limitations Vital Signs & Intake/Output Vital Signs & Intake/Output Vital Signs Date Time Temp Pulse Resp B/P B/P Pulse O2 O2 Flow FiO2 Mean Ox Delivery Rate 03/10 1223 97.0 92 18 127/75 98 Room Air 03/10 1001 98.4 94 18 123/85 98 Room Air Allergies Coded Allergies: Sulfa (Sulfonamide Antibiotics) (Severe, ANAPHYLAXIS 02/05/17) latex (Mild, HEADACHE, UTI 09/12/16) Reconcile Medications Aripiprazole 5 MG TABLET 1 TAB PO QPM MENTAL HEALTH (Reported) Benztropine Mesylate 1 MG TABLET 1 TAB PO QAM MENTAL HEALTH (Reported) Benztropine Mesylate 0.5 MG TABLET 1 TAB PO QPM MENTAL HEALTH (Reported) Ciprofloxacin HCl (Cipro) 500 MG TABLET 1 TAB PO BID uti Fluoxetine HCl 20 MG CAPSULE 60 MG PO DAILY MENTAL HEALTH (Reported) Quetiapine Fumarate 100 MG TABLET 2 TAB PO QPM MENTAL HEALTH (Reported) Triage Note: 26 YO FEMALE TO TRIAGE C/O L SIDED LOWER ABD PAIN RADIATING TO FLANK. STATES WAS SEEN LAST PM AND DX WITH A UTI, SENT HOME ON CIPRO. STATES HX OF KIDNEY STONES AND WAS TOLD IF HER PAIN GETS WORSE TO COME BACK. STATES THIS PAIN JUST STARTED THIS AM. STATES PAIN IS ON/OFF. DENIES NVD. LMP 02/28/17 Triage Nurses Notes Reviewed? yes ? N Is pt currently ? No Onset: Abrupt Duration: hour(s): Timing: recent history Location: suprapubic Radiation: flank Sexually Active: Yes Use of Protection: No HPI: 26-year-old female presents emergency department complaining of suprapubic pain radiating to bilateral flanks /back. The patient was seen and evaluated yesterday complaining of urinary tract infection symptoms, her urinalysis showed UTI, she was started on Cipro and instructed to return with any worsening symptoms or increasing pain. A urine culture was sent yesterday. The patient started to have dysuria 3 weeks ago and was treated originally with Macrobid, culture and sensitivity showed that this antibiotic was not effective and she was switched to Keflex which relieved her dysuria for about 3 days. Been experiencing UTI symptoms again prompting her to come in yesterday. The patient also has had thin yellowish vaginal discharge which is not normal for her. The patient is sexually active without use of protection, she has had 1 partner for the past 7 years, she says low suspicion for STDs. The patient's last bowel movement was today. The patient still has dysuria. The patient denies fevers, chills, nausea, vomiting, hematuria, diarrhea, constipation. (DARIAN DIEGO PA-C) Past History Travel History Traveled to [place] past 21 day No Medical History Any Pertinent Medical History? 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 No (DARIAN DIEGO PA-C) Review of Systems Review of Systems Constitutional: Reports: no symptoms. EENTM: Reports: no symptoms. Respiratory: Reports: no symptoms. Cardiovascular: Reports: no symptoms. GI: Reports: see HPI. Genitourinary: Reports: see HPI. Musculoskeletal: Reports: no symptoms. Skin: Reports: no symptoms. Neurological/Psychological: Reports: no symptoms. Hematologic/Endocrine: Reports: no symptoms. Immunologic/Allergic: Reports: no symptoms. All Other Systems: Reviewed and Negative (DARIAN DIEGO PA-C) Physical Exam Physical Exam Gastrointestinal: SEE BELOW Comments: Well-developed well-nourished person in no acute distress HEENT: HEAD is atraumatic, normocephalic Neck: Supple, normal range of motion Back: Nontender, no CVA tenderness. Full range of motion Cardiovascular: Regular rate and rhythms no murmurs rubs or gallops Respiratory: No respiratory distress. Patient speaking in full complete sentences. Breath sounds clear to auscultation bilaterally: NO W/R/R Abdomen: Soft, suprapubic tenderness, nondistended, no appreciable organomegaly. Normal bowel sounds. No rebound/guarding, No appreciable enlargement of the abdominal aorta, No ascites. 4TH GRADE TEACHER: External genetalia WNL, tenderess with speculum exam and swabing, white/ yellow thin discharge present, no cervical motion tendeness on bimanual exam, no mass felt on bimanual exam Extremity: No edema, full range of motion of extremities Neuro: Alert oriented x3, motor sensory normal, There were no obvious focal neurologic abnormalities. Skin: No appreciable rash on exposed skin, skin is warm and dry. Psych: Mood and affect is normal, memory and judgment is normal. Core Measures ACS in differential dx? No Severe Sepsis Present: No Septic Shock Present: No (JOHNATHON MARTINEZ,DARIAN CHANG) Progress Differential Diagnosis: appendicitis, biliary colic, bowel obstruction, cholecystitis, diverticulitis, ectopic , endometritis, inflamm bowel dis, intrauterine , kidney stone, ovarian cyst, ovarian torsion, PID/ cervicitis, SBO, UTI/pyelo Plan of Care: Orders Procedure Date/time Status TRICHOMONAS 03/10 1122 Complete POTASSIUM HYDROXIDE (HENRI) 03/10 1122 Complete GENITAL CULTURE 03/10 1122 Active CHLAMYDIA-GC DNA PROBE 03/10 112 Active URINE 03/10 1122 Complete URINALYSIS 03/10 1039 Complete COMPREHENSIVE METABOLIC PANEL 03/10 1039 Complete CBC WITHOUT DIFFERENTIAL 03/10 1039 Complete Laboratory Tests 03/10/17 1214: Urine Test NEGATIVE 03/10/17 1214: Urinalysis LIGHT H, Urine Color YEL, Urine Clarity HAZY H, Urine pH 7.0, Ur Specific [place] 1.020, Urine Protein NEG, Urine Ketones NEG, Urine Nitrite NEG, Urine Bilirubin NEG, Urine Urobilinogen 0.2, Ur Leukocyte Esterase TRACE H, Ur Microscopic SEDIMENT EXAMINED, Urine RBC RARE, Urine WBC 5-10 H, Ur Epithelial Cells FEW, Urine Bacteria FEW H, Urine Mucus FEW, Urine Hemoglobin NEG, Urine Glucose NEG 03/10/17 1100: Anion Gap 10, Estimated GFR > 60, BUN/Creatinine Ratio 18.6, Glucose 101 H, Calcium 9.4, Total Bilirubin 1.3, AST 45 H, ALT 82 H, Alkaline Phosphatase 88, Total Protein 6.7, Albumin 4.0, Globulin 2.7, Albumin/Globulin Ratio 1.5, CBC w Diff NO MAN DIFF REQ, RBC 4.58, MCV 82.9, MCH 27.2, RDW 14.2, MPV 10.5 H, Gran % 57.7, Lymphocytes % 30.9, Monocytes % 7.7, Eosinophils % 2.6, Basophils % 1.1, Absolute Granulocytes 2.8, Absolute Lymphocytes 1.5, Absolute Monocytes 0.4, Absolute Eosinophils 0.1, Absolute Basophils 0.1, PUBS MCHC 32.9 L Microbiology 03/10 1220 GENITAL: Trichomonas Preparation - COMP 03/10 1200 GENITAL: GC DNA Probe - RECD 03/10 1200 GENITAL: Chlamydia DNA Probe (COSMO) - RECD 03/10 1200 GENITAL: HENRI Preparation - COMP 03/10 1200 GENITAL: Genital Culture - RECD The patient was discussed with Dr. Bagley. Patient is worried about kidney stone. Patient's labs are within normal limits, we'll obtain CT scan to assess for stone. CT scan shows left kidney stone, nonobstructing, no pyelonephritis, no hydronephrosis. The patient was informed that this is not causing her abdominal /flank pain. The patient's urinalysis shows improving UTI, urine culture sensitivity is not available yet. The patient's pain may be from her cystitis. Patient was instructed to continue taking current antibiotic Cipro. The patient was instructed to increase her oral fluid intake. The patient will inform her primary care doctor that she was seen and evaluated today. The patient is in no acute distress, she is nontoxic appearing, her vital signs are stable. The patient will return with any worsening symptoms or concerns. Patient is in agreement with the plan of care. (JOHNATHON MARTINEZ,DARIAN CHANG) Diagnostic Imaging: Viewed by Me: CT Scan. Discussed w/RAD: CT Scan. Radiology Impression: PATIENT: MEI FARRAR PRESENT AGE: 26 PATIENT ACCOUNT NO: [id number] : 90 LOCATION: [facility] ORDERING PHYSICIAN: DARIAN DIEGO PA-C SERVICE DATE: 03/10/17 EXAM TYPE: CAT - CT ABD & PELVIS W/O IV CONTRAS EXAMINATION: CT ABDOMEN AND PELVIS WITHOUT CONTRAST CLINICAL INFORMATION: Recurrent UTI. Dysuria. Pelvic/flank pain. Evaluate for kidney stone or pyelonephritis. History of kidney stones with 2 stents placed in the left kidney in the past. COMPARISON: Abdominal ultrasound dated 07/09/2016. CT scan of the abdomen and pelvis dated 04/06/2015. TECHNIQUE: Multidetector volumetric imaging was performed from the superior aspect of the liver through the pubic symphysis. Sagittal and coronal reformatted images were obtained on the technologist workstation. DLP: 591.10 mGy-cm. FINDINGS: LUNG BASES: The visualized lung bases are unremarkable. LIVER, GALLBLADDER, AND BILIARY TREE: The liver is normal in size, shape, and attenuation. No focal hepatic lesion on noncontrast imaging. No biliary ductal dilatation is present. The gallbladder is unremarkable with no evidence of radiopaque gallstones, gallbladder wall thickening, or obvious pericholecystic inflammatory changes. PANCREAS, SPLEEN, ADRENAL GLANDS: Tiny accessory splenule is again seen in the splenic hilar region. Unremarkable on noncontrast imaging. KIDNEYS AND URETERS: The kidneys are normal in size, shape, and attenuation. There is a nonobstructing 0.4 x 0.3 cm calcification in the lower pole of the left kidney with attenuation values ranging up to 386 Hounsfield units, favoring a uric acid stone. This is new compared to the prior exam. No additional renal calculi seen. No hydronephrosis or hydroureter seen. No ureteral calculi. No perinephric stranding. BLADDER: Decompressed and suboptimally assessed, but grossly unremarkable. No bladder calculi. GASTROINTESTINAL TRACT: The small and large bowel are unremarkable. The appendix is unremarkable. ABDOMINAL WALL: No significant hernia is appreciated. LYMPH NODES, VASCULAR: Unremarkable. PELVIC VISCERA: Unremarkable. OSSEOUS STRUCTURES: Mild S-shaped thoracolumbar scoliosis. Otherwise unremarkable. IMPRESSION: 1. Nonobstructing 0.4 cm calcification in lower pole of left kidney, new from prior CT scan from 2014. No additional renal calculi seen. 2. No evidence of obstructive uropathy. DICTATED BY: JOEY BOX MD DATE/TIME DICTATED:03/10/171306 KINDERGARTNER: KERI DATE/TIME TRANSCRIBED:03/10/171306 CONFIDENTIAL, DO NOT COPY WITHOUT APPROPRIATE AUTHORIZATION. <Electronically signed in Other Vendor System> SIGNED BY: JOEY BOX MD 03/10/17 1327 Initial ED EKG: none (JOHNATHON MARTINEZ,DARIAN CHANG) Departure Departure Disposition: HOME OR SELF CARE Condition: Stable Clinical Impression Primary Impression: Cystitis Secondary Impressions: Kidney stone, Suprapubic abdominal pain Referrals: HUGH MCDERMOTT MD (PCP/Family) Additional Instructions: Continue to take full course of ciprofloxacin antibiotics prescribed here yesterday. Increase your fluid intake, rest. Take Tylenol or Motrin as prescribed as needed for pain. Follow up with your primary care doctor to inform them that you're seen and evaluated here today. We will call you if the results of your urine culture do not match the antibiotic that you're currently on. Return with any worsening symptoms or concerns. Please note that there might be incidental findings in your evaluation that are unrelated to the current emergency department visit. Please notify your primary care doctor about this emergency department visit in order to obtain and review all of the testing performed so that these incidental findings can be monitored as needed. If you had an x-ray performed, please understand that some fractures may not be seen on the initial set of x-rays. If your symptoms persist you might need a repeat set of x-rays to check for such a fracture. If you had a laceration evaluated, please understand that foreign bodies such as glass or wood may not be visible to the naked eye or on plain x-rays. If the wound becomes red, swollen, increasingly more painful or if there is any drainage from the wound, please have it reevaluated by a physician for the possibility of a retained foreign body. If you're unable to follow up as outlined in the discharge instructions please return to the emergency department. Thank you for choosing the [facility] Emergency Department for your care. It was a pleasure to serve you today. Departure Forms: Customer Survey General Discharge Information (JOHNATHON MARTINEZ,DARIAN CHANG) PA/SURGERY ATTENDANT Co-Sign Statement Statement: ED Attending supervision documentation- [] I saw and evaluated the patient. I have also reviewed all the pertinent lab results and diagnostic results. I agree with the findings and the plan of care as documented in the PA's/SURGERY ATTENDANT's documentation. [X] I have reviewed the ED Record and agree with the PA's/SURGERY ATTENDANT's documentation. [] Additions or exceptions (if any) to the PAs/SURGERY ATTENDANT's note and plan are summarized below: [] (MAREN BELLO,RAMSEY)
[2017-03-10 12:23] VITALS: BP 127/75
--- NOTE | 2017-03-10 13:27 | CT SCAN REPORT ---
EXAMINATION: CT ABDOMEN AND PELVIS WITHOUT CONTRAST CLINICAL INFORMATION: Recurrent UTI. Dysuria. Pelvic/flank pain. Evaluate for kidney stone or pyelonephritis. History of kidney stones with 2 stents placed in the left kidney in the past. COMPARISON: Abdominal ultrasound dated 07/09/2016. CT scan of the abdomen and pelvis dated 04/06/2015. TECHNIQUE: Multidetector volumetric imaging was performed from the superior aspect of the liver through the pubic symphysis. Sagittal and coronal reformatted images were obtained on the technologist workstation. DLP: 591.10 mGy-cm. FINDINGS: LUNG BASES: The visualized lung bases are unremarkable. LIVER, GALLBLADDER, AND BILIARY TREE: The liver is normal in size, shape, and attenuation. No focal hepatic lesion on noncontrast imaging. No biliary ductal dilatation is present. The gallbladder is unremarkable with no evidence of radiopaque gallstones, gallbladder wall thickening, or obvious pericholecystic inflammatory changes. PANCREAS, SPLEEN, ADRENAL GLANDS: Tiny accessory splenule is again seen in the splenic hilar region. Unremarkable on noncontrast imaging. KIDNEYS AND URETERS: The kidneys are normal in size, shape, and attenuation. There is a nonobstructing 0.4 x 0.3 cm calcification in the lower pole of the left kidney with attenuation values ranging up to 386 Hounsfield units, favoring a uric acid stone. This is new compared to the prior exam. No additional renal calculi seen. No hydronephrosis or hydroureter seen. No ureteral calculi. No perinephric stranding. BLADDER: Decompressed and suboptimally assessed, but grossly unremarkable. No bladder calculi. GASTROINTESTINAL TRACT: The small and large bowel are unremarkable. The appendix is unremarkable. ABDOMINAL WALL: No significant hernia is appreciated. LYMPH NODES, VASCULAR: Unremarkable. PELVIC VISCERA: Unremarkable. OSSEOUS STRUCTURES: Mild S-shaped thoracolumbar scoliosis. Otherwise unremarkable. IMPRESSION: 1. Nonobstructing 0.4 cm calcification in lower pole of left kidney, new from prior CT scan from 2014. No additional renal calculi seen. 2. No evidence of obstructive uropathy.
== END 2017-03-10 13:45 ==
LOC: ERH 09:54
PROVIDERS: Physician Assistant
DX: N30.90 Cystitis, unspecified without hematuria (principal); N20.0 Calculus of kidney
CPT/HCPCS: 87070; 74176; 81001; 81025; 87491; 87591

== ENCOUNTER 2018-01-25 09:40 | Emergency (ER) | payer OTHER ==
[~2018-01-25] VITALS: Ht 165.1 cm; Wt 96.2 kg
[~2018-01-25 09:40] MED LIST changes: +ABILIFY5 M1 PO
[2018-01-25 09:45] VITALS: BP 120/74
[2018-01-25] MEDS ORDERED: QUETIAPINE FUM100 M1 PO (09:58)
[2018-01-25] MEDS ORDERED: BENZTROPINE ME0.5 M1 PO (09:58)
[2018-01-25] MEDS ORDERED: ABILIFY5 M1 PO (09:58)
[2018-01-25] MEDS ORDERED: FLUOXETINE HCL60 MG PO (09:58)
--- NOTE | 2018-01-25 10:00 | ED GENERAL ADULT ---
History of Present Illness General Chief Complaint: General Adult Stated Complaint: PSY REFILL Source: patient Exam Limitations: no limitations Vital Signs & Intake/Output Vital Signs & Intake/Output Vital Signs Date Time Temp Pulse Resp B/P B/P Pulse O2 O2 Flow FiO2 Mean Ox Delivery Rate 01/25 0945 97.8 70 20 120/74 98 Room Air Allergies Coded Allergies: Sulfa (Sulfonamide Antibiotics) (Severe, ANAPHYLAXIS 01/25/18) latex (Mild, HEADACHE, UTI 01/25/18) Reconcile Medications Aripiprazole 5 MG TABLET 1 TAB PO QPM MENTAL HEALTH (Reported) Aripiprazole (Abilify) 5 MG TABLET 1 TAB PO QPM DEPRESSION Aripiprazole (Abilify) 5 MG TABLET 1 TAB PO DAILY DEPRESSION Benztropine Mesylate 1 MG TABLET 1 TAB PO QAM MENTAL HEALTH (Reported) Benztropine Mesylate 0.5 MG TABLET 1 TAB PO QPM MENTAL HEALTH (Reported) Benztropine Mesylate 0.5 MG TABLET 1 TAB PO AD DEPRESSION 2 TABS QAM 1 TAB QPM Benztropine Mesylate 0.5 MG TABLET 1 TAB PO AD DEPRESSION, PSYCHOSIS 2 TABS IN MORNING 1 TAB EVENING Ciprofloxacin HCl (Cipro) 500 MG TABLET 1 TAB PO BID uti Fluoxetine HCl 20 MG CAPSULE 60 MG PO DAILY MENTAL HEALTH (Reported) Fluoxetine HCl 20 MG CAPSULE 3 CAP PO QAM DEPRESSION Fluoxetine HCl 60 MG TABLET 1 TAB PO DAILY DEPRESSION Quetiapine Fumarate 100 MG TABLET 2 TAB PO QPM MENTAL HEALTH (Reported) Quetiapine Fumarate 100 MG TABLET 1 TAB PO QPM SLEEP/DEPRESSION Quetiapine Fumarate 100 MG TABLET 1 TAB PO QPM POST PSYCHOSIS Triage Note: TRIAGE: PT TO ER WITH ADIN C/C REQUESTING MEDICATION REFILL. PROZAC 60 MG DAILY ABILIFY 5 MG DAILY COGENTIN 0.5 MG 2 TAB QAM AND 1 TAB QPM SEROQUEL 100 MG QPM STATES PSYCHIATRIST SHE WAS SEEING DOES NOT ACCEPT HER INSURANCE AND OUT OF POCKET COST IS $200. STRUGGLING TO FIND NEW ONE THAT WILL TAKE HER INSURANCE. Triage Nurses Notes Reviewed? yes Onset: Abrupt Duration: constant Timing: recent history : No Patient currently breastfeeds: No HPI: 27-year-old female comes into the emergency room for a refill on her psychiatric medication. She is still trying to get in with a psychiatrist. She has a history of post depression. She denies any suicidal or homicidal patient. She reports she feels fine when she is on her medications. She is currently still trying to find a doctor. Past History Travel History Traveled to [place] past 21 day No Medical History Any Pertinent Medical History? see below for history Neurological: NONE EENT: NONE Cardiovascular: BRADYCARDIA ARRHYTHMIA Respiratory: NONE Gastrointestinal: NONE Hepatic: NONE Renal: nephrolithiasis, HYDRONEPHROSIS Musculoskeletal: NONE Psychiatric: anxiety, bipolar disease, depression, OCD POSTPARDEM DEPRESSION Endocrine: NONE Blood Disorders: NONE Cancer(s): NONE CARDIOLOGY PHYSICIAN/Reproductive: PCOS History of MRSA: No History of VRE: No History of CDIFF: No Tetanus Vaccine: 05/13/16 Surgical History Surgical History: , EYE SX- L EYE-MUSCLE lEFT RENAL STENT Psychosocial History Who do you live with Family What is your primary language Azeri Tobacco Use: Current Daily Use Daily Tobacco Use Amount/Type: => 5 Cigarettes daily ETOH Use: occasional use Illicit Drug Use: denies illicit drug use Family History Hx Contributory? No Review of Systems Review of Systems Constitutional: Reports: no symptoms. EENTM: Reports: no symptoms. Respiratory: Reports: no symptoms. Cardiovascular: Reports: no symptoms. GI: Reports: no symptoms. Genitourinary: Reports: no symptoms. Musculoskeletal: Reports: no symptoms. Skin: Reports: no symptoms. Neurological/Psychological: Reports: see HPI. Hematologic/Endocrine: Reports: no symptoms. Immunologic/Allergic: Reports: no symptoms. All Other Systems: Reviewed and Negative Physical Exam Physical Exam General Appearance: well developed/nourished, no apparent distress, alert, awake Head: atraumatic Eyes: Bilateral: normal appearance. Ears, Nose, Throat: normal ENT inspection, hearing grossly normal Neck: normal inspection Respiratory: no respiratory distress Back: normal inspection Extremities: normal inspection Neurologic/Psych: awake, alert Skin: intact Core Measures ACS in differential dx? No CVA/TIA Diagnosis: No Sepsis Present: No Sepsis Focused Exam Completed? No Progress Differential Diagnoses I considered the following diagnoses in my evaluation of the patient: depression , PTSD, anxiety, bipolar Plan of Care: 01/25/2018 11:19:38 AM Patient was given a refill on her medication and told to follow-up with psychiatry. Told her to contact her primary care doctor. Return if any other concerns. Initial ED EKG: none Departure Departure Disposition: HOME OR SELF CARE Condition: Stable Clinical Impression Primary Impression: Medication refill Secondary Impressions: Depression Referrals: Justine BELLO,Carlin Zheng (PCP/Family) Additional Instructions: Take medications as prescribed. Follow-up with psychiatrist. Return if any concerns worsening symptoms. Please go over all results of today's visit with your primary care doctor. Contact your primary care doctor to let them know you were here in the emergency room. There may be nonspecific findings which may not be related to your visit today here in the emergency room but may require further evaluation and chronic monitoring by your primary care doctor. If you had a laceration today the chance of foreign body always remains. You should follow-up with your primary care doctor for recheck in 3-5 days for a wound check. If you had an x-ray done there is a chance that a fracture could have been missed on initial read and you should follow-up with your primary care doctor for repeat x-rays if symptoms persist. If your blood pressure was elevated here in the emergency room please have rechecked by [facility] primary care doctor within the next 48. If you were prescribed a narcotic here in the emergency room or any type of controlled substances you're not allowed to drive while taking this medication or operate any type of heavy machinery. Narcotics can make you feel lightheaded dizziness nausea and can cause constipation. You may need to slat pickler a stool softener. Thank you for choosing [facility] emergency room. Please return to the emergency room immediately if you have any other concerns worsening of symptoms. Departure Forms: Customer Survey General Discharge Information Prescriptions: Current Visit Scripts Fluoxetine HCl 1 TAB PO DAILY #30 TAB Aripiprazole (Abilify) 1 TAB PO DAILY #30 TAB Quetiapine Fumarate 1 TAB PO QPM #30 TAB Benztropine Mesylate 1 TAB PO AD #90 TAB 2 TABS IN MORNING 1 TAB EVENING Critical Care Note Critical Care Note Critical Care Time: non-applicable
== END 2018-01-25 10:03 ==
LOC: ERH 09:40
DX: F32.9 Major depressive disorder, single episode, unspecified (principal); Z76.0 Encounter for issue of repeat prescription
CPT/HCPCS: 99281